=== PATIENT | male | born 1955 | race Caucasian/White ===

== ENCOUNTER 2022-02-14 14:47 | Emergency (ER) | payer MEDICARE, SELFPAY ==
--- NOTE | ~2022-02-14 | XR_ITS ---
XR knee LT 3V DATE: 02/14/2022 17:20 INDICATION: Twisting injury during a fall today. 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 No fracture or dislocation or joint effusion. No radiopaque intra-articular loose body or chondrocalc inosis. No periosteal reaction or bone destruction. IMPRESSION: Tricompartment osteophytosis No fracture or dislocation or joint effusion Reviewed, dictated and finalized at location B.
--- NOTE | ~2022-02-14 | XR_ITS ---
EXAMINATION: XR tibia fibula LT 2V INDICATION: Left leg pain TECHNIQUE: Two views of the left tibia and fibula are obtained on four radiographs. COMPARISON: None available FINDINGS: There is moderate osteoarthritis of the knee. No fracture is identified. The soft tissues a re unremarkable. Mild osteoarthritis is noted in the midfoot. IMPRESSION: 1. No acute osseous abnormality. Reviewed, dictated and finalized at location A.
[2022-02-14 14:54] VITALS: BP 115/77; PULSE 86; RESP 16; TEMP 36.2; O2SAT 99
--- NOTE | 2022-02-14 16:25 | ED.FALL ---
HPI - Fall General Chief Complaint: Fall Stated Complaint: fall- leg pain Time Seen by Provider: 02/14/22 16:18 Source: patient and family Mode of arrival: ambulatory Limitations: no limitations History of Present Illness HPI Narrative: Patient woke up at 3:30 AM and to go to the bathroom, twisted left lower extremity while trying to avoid stepping on his sleeping dogs. No fall, no head injury, no loss of consciousness. Pain at left knee distally. History of right dropfoot Related Data Allergies Allergy/AdvReac Type Severity Reaction Status Date / Time No Known Allergies Allergy Verified 02/14/22 14:59 Review of Systems Review of Systems: All systems reviewed & are unremarkable except as noted in HPI and below Exam Narrative: General appearance: Well-developed, well-nourished Skin: Normal color Head: Normocephalic, nontraumatic Neck: Supple, nontender Chest and respiratory: Airway patent, no respiratory distress, no accessory muscle use Heart: Regular rate/rhythm Vascular: Normal peripheral pulses, normal capillary refill. 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 No acute osseous abnormality. Critical Care Time Critical Care Time Critical Care Time: No Discharge Plan Discharge Clinical Impression: Knee sprain Patient Disposition: Home, Self-Care Condition: Stable Instructions: Antibiotic Form, Knee Sprain (ED), Knee Immobilizer (ED) Additional Instructions: Return if symptoms are worsening , call your family physician for appointment, take Tylenol as as needed for aches and pain, continue home medications. Follow-up/Referrals: Paulina,Carlos Tan MD [Primary Care Provider] -
[2022-02-14] MEDS: ONDANSETRON HCL ODT 4 MG TABLET PO (16:43)
[2022-02-14] MEDS: HYDROmorphone HCL INJ (*CRX) 1 MG/ML SYR IM (16:44)
== END 2022-02-14 20:01 | disposition home or self-care (01) ==
PROVIDERS: Emergency Provider Emergency Medicine; PCP Internal Medicine
DX: S83.92XA Sprain of unspecified site of left knee, initial encounter (principal); X50.1XXA Overexertion from prolonged static or awkward postures, initial encounter
CPT/HCPCS: 73562; 73590; 96372; 99284; A9270; J1170

== ENCOUNTER → 2023-06-03 13:14 | Outpatient (CLI) | payer MEDICARE, SELFPAY ==
--- NOTE | ~2023-06-03 | MR_ITS ---
MRI of the lumbar spine Clinical History: Failed back syndrome Technique: Axial T2-weighted images, and sagittal T1-weighted, T2-weighted, and T2 fat-sat images wer e acquired. Findings: No acute fracture seen. 4 mm retrolisthesis of L3 over L4 present. 3 mm retrolisthesis of L 2 over L3 present. No suspicious bone marrow signal abnormality seen. At L1-L2, there is moderate to advanced degenerative disc 9. There is mild disc bulge and moderate fa cet arthropathy. No central canal stenosis. Bilateral neural foramina are preserved. At L2-L3, there is moderate to advanced degenerative disc narrowing. There is mild diffuse disc bulge with moderate facet arthropathy. There is mild central canal stenosis. There is moderate left neural foraminal narrowing, and severe right neural foraminal narrowing. At L3-L4, there is moderate to severe degenerative disc narrowing. There is disc bulge and moderate f acet arthropathy, with left lateral recess stenosis. There is severe bilateral neural foraminal narro wing, left worse than right. At L4-L5, there is severe degenerative disc narrowing with laminectomy present. No central canal sten osis. There is moderate to severe bilateral neural foraminal narrowing. At L5-S1, there is laminectomy defect. There is probable severe central canal stenosis predominantly related to prominent epidural fat. There is mild bilateral neural foraminal narrowing. Paravertebral soft tissues are unremarkable. Impression: Moderate to severe degenerative spondylosis, as above. Laminectomy defects at L4 and L5. 4 mm retrolisthesis of L3 over L4. 3 mm retrolisthesis of L2 over L3. Reviewed, dictated and finalized at [facility]. Impression: Moderate to severe degenerative spondylosis, as above. Laminectomy defects at L4 and L5. 4 mm retrolisthesis of L3 over L4. 3 mm retrolisthesis of L2 over L3.
== END ==
PROVIDERS: PCP Internal Medicine; Visit Provider Physical Medicine & Rehabilitation
DX: M96.1 Postlaminectomy syndrome, not elsewhere classified (principal); M43.06 Spondylolysis, lumbar region
CPT/HCPCS: 72148

== ENCOUNTER 2023-10-16 14:28 | Outpatient (CLI) | payer MEDICARE, SELFPAY ==
[2023-10-16 14:45] LABS: Basophils Absolute Auto 0.1 K/mm3 (0.0-0.1); Basophils Percent Auto 0.9 % (0.2-1.2); Eosinophils Absolute Auto 0.4 K/mm3 (0-0.3); Eosinophils Percent Auto 5.6 % (0-4.4); Hematocrit 41.7 % (42.0-52.0); Hemoglobin 14.1 g/dL (14.0-18.0); Immature Granulocyte Absolute 0.02 K/mm3 (0.00-0.031); Immature Granulocyte Percent A 0.3 % (0-0.5); Lymphocytes Absolute Auto 2.39 K/mm3 (0.9-3.2); Lymphocytes Percent Auto 36.4 % (18.3-44.2); Mean Corpuscular HGB Conc 33.8 g/dl (32-36); Mean Corpuscular Hemoglobin 33.1 pg (26-34); Mean Corpuscular Volume 97.9 fl (80-100); Mean Platelet Volume 8.7 fl (7.4-10.4); Monocytes Absolute Auto 0.6 K/mm3 (0.1-0.6); Monocytes Percent Auto 8.5 % (2.6-8.5); Neutrophils Absolute Auto 3.2 K/mm3 (1.3-6.7); Neutrophils Percent Auto 48.3 % (45.5-73.1); Platelet Count Result 250 k/mm3 (150-375); Red Blood Count 4.26 M/mm3 (4.6-6.20); Red Cell Distribution Width 12.4 % (11.5-14.5); White Blood Count 6.6 K/mm3 (4.5-10.0)
[2023-10-16 16:42] LABS: Alanine Aminotransferase 30 U/L (6-50); Albumin Level 4.2 g/dL (3.5-5.1); Alkaline Phosphatase 72 U/L (38-126); Anion Gap 10 mmol/L (8-16); Aspartate Amino Transferase 32 U/L (17-59); Bilirubin,Total 0.4 mg/dL (0.2-1.3); Blood Urea Nitrogen 11 mg/dL (9-20); Calcium 8.8 mg/dL (8.4-10.2); Carbon Dioxide 23 mmol/L (22-30); Chloride 103 mmol/L (98-107); Estimated Glomerular Filt Rate > 60; Glucose 80 mg/dL (65-110); Potassium 4.3 mmol/L (3.4-5.0); Sodium 136 mmol/L (137-145)
[2023-10-16 18:05] LABS: Immunoglobulin A 292 mg/dL (70-400); Immunoglobulin G 1138 mg/dL (700-1600); Immunoglobulin M 61 mg/dL (40-230)
[2023-10-19 15:30] LABS: Kappa\\Lambda Light Chains 1.78 (0.26-1.65); Lambda Light Chain 20.3 mg/L (5.7-26.3)
[2023-10-20 16:03] LABS: Abnormal Protein Band 1 0.4 g/dL; Alpha 1 Globulin 0.3 g/dL (0.2-0.3); Alpha 2 Globulin 0.7 g/dL (0.5-0.9); Beta 1 Globulin 0.4 g/dL (0.4-0.6); Gamma Globulin 1.1 g/dL (0.8-1.7); Protein, Total 6.9 g/dL (6.1-8.1)
== END 2023-10-16 14:29 | disposition home or self-care (01) ==
LOC: ANHLAB 14:30
PROVIDERS: PCP Internal Medicine; Visit Provider Internal Medicine Hematology & Oncology
DX: D47.2 Monoclonal gammopathy (principal)
CPT/HCPCS: 36415; 80053; 82784; 83883; 84155; 84165; 85025

== ENCOUNTER 2024-06-10 13:38 | Outpatient (CLI) | payer MEDICARE, SELFPAY ==
[2024-06-10 14:03] LABS: Basophils Absolute Auto 0.1 K/mm3 (0.0-0.1); Basophils Percent Auto 0.7 % (0.2-1.2); Eosinophils Absolute Auto 0.1 K/mm3 (0-0.3); Eosinophils Percent Auto 1.4 % (0-4.4); Hematocrit 40.7 % (42.0-52.0); Immature Granulocyte Absolute 0.03 K/mm3 (0.00-0.031); Immature Granulocyte Percent A 0.4 % (0-0.5); Lymphocytes Absolute Auto 1.51 K/mm3 (0.9-3.2); Lymphocytes Percent Auto 19.8 % (18.3-44.2); Mean Corpuscular HGB Conc 34.4 g/dl (32-36); Mean Corpuscular Hemoglobin 34.1 pg (26-34); Mean Platelet Volume 8.6 fl (7.4-10.4); Monocytes Absolute Auto 0.5 K/mm3 (0.1-0.6); Monocytes Percent Auto 5.9 % (2.6-8.5); Neutrophils Absolute Auto 5.5 K/mm3 (1.3-6.7); Neutrophils Percent Auto 71.8 % (45.5-73.1); Platelet Count Result 218 k/mm3 (150-375); Red Blood Count 4.11 M/mm3 (4.6-6.20); Red Cell Distribution Width 12.6 % (11.5-14.5); White Blood Count 7.6 K/mm3 (4.5-10.0)
[2024-06-10 16:32] LABS: Alanine Aminotransferase 28 U/L (6-50); Albumin Level 4.2 g/dL (3.5-5.1); Alkaline Phosphatase 80 U/L (38-126); Anion Gap 12 mmol/L (4-12); Aspartate Amino Transferase 33 U/L (17-59); Bilirubin,Total 0.3 mg/dL (0.2-1.3); Blood Urea Nitrogen 7 mg/dL (9-20); Calcium 8.7 mg/dL (8.4-10.2); Carbon Dioxide 24 mmol/L (22-30); Chloride 98 mmol/L (98-107); Estimated Glomerular Filt Rate > 60; Glucose 93 mg/dL (65-110); Potassium 3.9 mmol/L (3.4-5.0); Sodium 134 mmol/L (137-145)
[2024-06-10 16:39] LABS: Immunoglobulin A 269 mg/dL (70-400); Immunoglobulin G 931 mg/dL (700-1600); Immunoglobulin M 61 mg/dL (40-230)
[2024-06-12 04:08] LABS: Protein, Total 6.5 g/dL (6.1-8.1)
[2024-06-14 14:13] LABS: Kappa\\Lambda Light Chains 1.72 (0.26-1.65); Lambda Light Chain 16.9 mg/L (5.7-26.3)
[2024-06-17 16:33] LABS: Abnormal Protein Band 1 0.4 g/dL (NONE DETECTED); Albumin 3.8 g/dL (3.8-4.8); Alpha 1 Globulin 0.3 g/dL (0.2-0.3); Alpha 2 Globulin 0.7 g/dL (0.5-0.9); Beta 1 Globulin 0.4 g/dL (0.4-0.6); Gamma Globulin 0.9 g/dL (0.8-1.7)
== END 2024-06-10 13:39 | disposition home or self-care (01) ==
LOC: ANHLAB 13:42
PROVIDERS: PCP Internal Medicine; Visit Provider Internal Medicine Hematology & Oncology
DX: D47.2 Monoclonal gammopathy (principal)
CPT/HCPCS: 36415; 80053; 82784; 83883; 84155; 84165; 85025

== ENCOUNTER 2024-08-25 11:48 | Outpatient (CLI) | payer MEDICARE, SELFPAY ==
--- NOTE | ~2024-08-25 | XR_ITS ---
EXAMINATION: XR thoracic spine 2V DATE: 08/25/2024 12:03 INDICATION: Low back pain. Thoracic radiculopathy. TECHNIQUE: 3 views of thoracic spine including standing views were obtained. COMPARISON: None. FINDINGS: There is 7 degrees dextrocurvature of thoracic spine. Vertebral body heights are normal. Th ere is mildly decreased disc height at many levels. There are endplate osteophytes at most levels. Th ere are changes of anterior fusion procedure from C4 to C6 with anterior plate and screws. IMPRESSION: 1. Mild thoracic spondylosis. Reviewed, dictated and finalized at location A. ROL PANEL TESTER
--- NOTE | ~2024-08-25 | XR_ITS ---
EXAMINATION: XR lumbar spine 2-3V DATE: 08/25/2024 12:03 INDICATION: Lumbar radiculopathy. Low back pain. TECHNIQUE: 3 views of lumbar spine including standing views were obtained. COMPARISON: Lumbar spine MRI 06/03/2023, thoracic spine radiographs 08/25/2024 FINDINGS: S1 is a transitional segment. There is 12 degrees levoscoliosis of lumbar spine. There is m ild chronic anterior wedging of T12 and L1 vertebral bodies. There is moderately decreased disc heigh t at L2-L3, L3-L4, and L4-L5. There is severely decreased disc height at L5-S1 with interbody fusion. There is multilevel severe facet joint osteoarthritis. IMPRESSION: 1. Moderate lumbar spondylosis. 2. Lumbar levoscoliosis. Reviewed, dictated and finalized at location A. ERY OPERATOR
== END 2024-08-25 11:49 | disposition home or self-care (01) ==
LOC: MICIMG 11:49
PROVIDERS: PCP Pain Medicine Interventional Pain Medicine; Visit Provider Pain Medicine Interventional Pain Medicine
DX: M47.24 Other spondylosis with radiculopathy, thoracic region (principal); M47.27 Other spondylosis with radiculopathy, lumbosacral region
CPT/HCPCS: 72070; 72100

== ENCOUNTER 2025-07-25 12:57 | Emergency (ER) | payer MEDICARE, SELFPAY ==
[2025-07-25] VITALS (32 sets, daily range): BP systolic 64–129; BP diastolic 46–94; PULSE 87–119; RESP 13–25; O2SAT 93–100
--- NOTE | ~2025-07-25 | CT_ITS ---
EXAMINATION: CTA chest PE protocol DATE: 07/25/2025 15:34 CDT INDICATION: New shortness of breath. Rule out PE Technique: Multiple axial CT images of the chest with IV contrast. Sagittal and coronal reformatted images were obtained. FINDINGS: Lungs and pleura: [ Multiple bilateral pulmonary emboli including saddle pulmonary emboli in the right main pulmonary artery and in the left main pulmonary artery.] No pneumothorax. No pleural effusion. No focal pulmonary consolidation. Evaluation is slightly limited due to motion artifact. Small patchy opacities in the right middle lobe. There is 8 mm pulmonary nodule in the right lower lobe. Mediastinum and pulmonary antonella: [ No mass or adenopathy.] Axillary/intramammary and supraclavicular: [ No mass or adenopathy.] Heart and great vessels: [ Normal heart size.[ [ No pericardial effusion.] [ No aneurysm.] Chest Wall: [ Unremarkable.] Upper Abdomen: Small hiatal hernia. Osseous structures: [ No acute fracture or destructive lesion.] [ Multilevel degenerative change in the visualized spine.] Additional findings: Hardware is noted. IMPRESSION: 1. Multiple bilateral pulmonary emboli. Dr. Blevins was notified about the findings on 07/25/2025 at 3:30 PM Eastern standard time by Dr. Castañeda, read back occurred 2. There is 8 mm pulmonary nodule in the right lower lobe. A PET/CT and/or biopsy is recommended. Reviewed, dictated and finalized at location Q. IMPRESSION: 1. Multiple bilateral pulmonary emboli. Dr. Blevins was notified about the fi ndings on 07/25/2025 at 3:30 PM Eastern standard time by Dr. Castañeda, read back occurred 2. There is 8 mm pulmonary nodule in the right lower lobe. A PET/CT and/or biop sy is recommended.
--- NOTE | ~2025-07-25 | XR_ITS ---
EXAMINATION: XR chest 2V 07/25/2025 14:13 INDICATION: Shortness of breath and dizziness PROCEDURE: 2 view chest COMPARISON: 02/22/2011 FINDINGS: The lungs are clear. The cardiomediastinal silhouette is within normal limits. There are no pleural effusions. There is no pneumothorax suspected. IMPRESSION: 1: NO ACUTE CARDIOPULMONARY DISEASE. Reviewed, dictated and finalized at location O.
--- NOTE | 2025-07-25 13:13 | ECG_ITS ---
Test Date: 2025-07-25 13:21:05 Measurements Intervals [place] Rate: 95 P: 61 CT: 163 QRS: 14 QRSD: 154 T: -3 QT: 381 QTc: 480 Interpretive Statements SINUS RHYTHM RIGHT BUNDLE BRANCH BLOCK BASELINE ARTIFACT- I, II, AVR, AVF ABNORMAL ECG No previous ECG available for comparison Electronically Signed On 07-25-2025 13:41:33 CDT by Regan Peña D.O.
[2025-07-25 13:28] LABS: Hematocrit 43.4 % (42.0-52.0); Hemoglobin 14.9 g/dL (14.0-18.0); Immature Granulocyte Percent A 0.6 % (0-0.5); Lymphocytes Absolute Auto 2.44 K/mm3 (0.9-3.2); Mean Corpuscular HGB Conc 34.3 g/dl (32-36); Mean Corpuscular Hemoglobin 34.2 pg (26-34); Mean Corpuscular Volume 99.5 fl (80-100); Nucleated Red Blood Cells Absolute Auto 0.000 K/mm3 (0.0-0.012); Nucleated Red Blood Cells Perc 0.0 % (0.0-0.2); Platelet Count Result 201 k/mm3 (150-375); Red Blood Count 4.36 M/mm3 (4.6-6.20); White Blood Count 14.5 K/mm3 (4.5-10.0)
[2025-07-25 13:39] LABS: Alanine Aminotransferase 97 U/L (6-50); Albumin Level 3.8 g/dL (3.5-5.1); Alkaline Phosphatase 84 U/L (38-126); Anion Gap 11 mmol/L (4-12); Aspartate Amino Transferase 106 U/L (17-59); Bilirubin,Total 1.2 mg/dL (0.2-1.3); Blood Urea Nitrogen 12 mg/dL (9-20); Calcium 8.2 mg/dL (8.4-10.2); Carbon Dioxide 22 mmol/L (22-30); Chloride 93 mmol/L (98-107); Estimated CRCL calculation 50 ml/min; Estimated Glomerular Filt Rate 44; Glucose 96 mg/dL (65-110); Potassium 3.8 mmol/L (3.4-5.0); Sodium 126 mmol/L (137-145); Total Protein 6.9 g/dL (6.3-8.2)
--- NOTE | 2025-07-25 13:54 | ED_ITS ---
HPI - SOB/Dyspnea General Chief Complaint: Shortness of Breath/Dyspnea Stated Complaint: SOB x 4/5 days Time Seen by Provider: 07/25/25 13:37 Source: patient Mode of arrival: ambulatory Limitations: no limitations History of Present Illness HPI Narrative: This is a 70-year-old male with history of hypertension, hypothyroidism who presents to the ED for shortness of breath. Patient states through the past few days ago he has been having shortness of breath worse with exertion. He states that today, he began to see stars prompting him to come to the ED. He reports no shortness of breath at rest. Denies chest pain, abdominal pain. He did have nausea and emesis x1 yesterday but has had none of that since then. No melena or hematochezia. Denies cough, fevers, chills. Related Data Home Medications ?Medication ?Instructions ?Recorded ?Confirmed ?Last Taken ?Type levothyroxine 50 mcg tablet 50 mcg PO DAILY 01/25/25 1 07/25/25 History losartan 100 mg tablet 100 mg PO DAILY 01/25/2507/25/25 History hydrocodone 10 mg-acetaminophen 1 tablet PO Q6H PRN pa in 02/17/25 07/25/25 07/25/25 History 325 mg tablet Allergies Allergy/AdvReac Type Severity Reaction Status Date / Time No Known Allergies Allergy Verified 07/25/25 13:21 Review of Systems 2 Review of Systems: Gen.: Denies fevers or chills Eyes: Denies eye pain or visual change ENT: Denies congestion Respiratory: As per HPI CV: Denies chest pain or palpitations GI: Denies abdominal pain nausea, emesis or diarrhea denies burning, urgency, frequency or hematuria Musculoskeletal: Denies back pain or muscle pain Neuro: Denies numbness, tingling, weakness or focal weakness Skin: Denies rash Except as documented, all other systems reviewed and negative [facility] Social History Social History Smoking status: Never smoker Alcohol intake: current Drinks per week: 20 Alcohol use details: beer Living arrangements: alone Spiritual care concerns: No Exam 2 Narrative: APPEARANCE: No acute distress, nontoxic, resting in bed EYES: EOMI HEENT: Normocephalic, atraumatic, OMM RESPIRATORY: No respiratory distress Clear to auscultation bilaterally with no rhonchi wheezing or rales. CARDIOVASCULAR: Regular rate and rhythm without murmurs rubs or gallops. ABDOMINAL: Soft, nontender, nondistended, no rebound or guarding MUSCULOSKELETAl: Moves all extremities. No clubbing, cyanosis or edema. NEURO: Awake and alert. Following commands, speech normal, no focal deficits SKIN:: Extremities cool. No rashes, lesions, abrasions PSYCHIATRIC: Normal affect/mood, Course Vital Signs Vital signs: Vital Signs Pulse Rate 95 07/25/25 13:16 Respiratory Rate 16 07/25/25 13:16 Blood Pressure 107/74 07/25/25 13:16 Pulse Oximetry 94 07/25/25 13:16 Oxygen Delivery Room Air 07/25/25 13:16 Pulse Rate 95 07/25/25 19:01 Respiratory Rate 19 07/25/25 19:01 Blood Pressure 105/79 07/25/25 19:01 Pulse Oximetry 98 07/25/25 19:01 Oxygen Delivery Nasal Cannula 07/25/25 18:16 Oxygen Flow Rate 2 07/25/25 18:16 MDM - SOB/Dyspnea MDM Narrative Medical decision making narrative: 70-year-old male presenting for dyspnea on exertion. On initial evaluation, patient was in no acute distress, afebrile. Blood pressure was borderline at 80s to 90s/60s but he was asymptomatic at this time. He is satting 95-96% on room air. Heart and lungs clear. He had a mild leukocytosis at 14.5. Hyponatremic to 126. Creatinine elevated at 1.55. Troponin elevated at 0.3 [place] [address]. Chest x-ray showed no acute process. CTA chest was obtained which showed significant bilateral pulmonary PEs with a saddle pulmonary embolus and evidence of right heart strain. Given this, patient will require transfer for possible thrombectomy. Patient was started on heparin bolus and drip. Spoke with Dr. Vora supply and distribution manager at [facility], will accept the patient pending IR consultation. Spoke with IR Dr. Mcdowell, will evaluate for thrombectomy on arrival, recommends admission to [facility] if possible. Spoke with Dr. Clark, Running Rigger, agrees to admit the patient under Dr. Nobles at [facility] pending immediate bed availability. There is apparently more availability at [facility] so patient was accepted by Dr. Vora supply and distribution manager, at [facility]. Patient transferred in a stable condition. CRITICAL CARE Indication: 60 Time type: intermittent I provided a total of 60 minutes of critical care excluding separately billable procedures. This includes time w/ EMS, initial bedside evaluation, reviewing old records, review of testing done while under my care, discussion w/ the family, nurses, public relations consultant and guiding the patient?s care while in the emergency department. Differential Diagnosis Differential diagnosis: Likely other (Anemia, GI bleed, electrolyte abnormality, ACS, CHF exacerbation) Medical Records Attestation: I reviewed the patient's medical records. Lab Data Attestation: I reviewed the patient's lab results. 07/25/25 13:23 07/25/25 13:23 Labs: Lab Results 07/25/25 Range/Units 13:23 WBC 14.5 H (4.5-10.0) K/mm3 RBC 4.36 L (4.6-6.20) M/mm3 Hgb 14.9 (14.0-18.0) g/dL Hct 43.4 (42.0-52.0) % MCV 99.5 (80-100) fl MCH 34.2 H (26-34) pg MCHC 34.3 (32-36) g/dl RDW 12.8 (11.5-14.5) % Plt Count 201 (150-375) k/mm3 MPV 9.3 (7.4-10.4) fl Immature Gran % (Auto) 0.6 H (0-0.5) % Neut % (Auto) 73.7 H (45.5-73.1) % Lymph % (Auto) 16.9 L (18.3-44.2) % [place] % (Auto) 7.5 (2.6-8.5) % Eos % (Auto) 0.9 (0-4.4) % Baso % (Auto) 0.4 (0.2-1.2) % Lymph # (Auto) 2.44 (0.9-3.2) K/mm3 [place] # (Auto) 1.1 H (0.1-0.6) K/mm3 Eos # (Auto) 0.1 (0-0.3) K/mm3 Baso # (Auto) 0.1 (0.0-0.1) K/mm3 Abs Immat Gran (auto) 0.08 H (0.00-0.031) K/mm3 Absolute Neuts (auto) 10.7 H (1.3-6.7) K/mm3 Absolute Nucleated RBC 0.000 (0.0-0.012) K/mm3 Nucleated RBC % 0.0 (0.0-0.2) % PT 15.9 H (11.1-14.7) Seconds INR 1.3 APTT 36.4 (22.3-36.8) Seconds Sodium 126 L (137-145) mmol/L Potassium 3.8 (3.4-5.0) mmol/L Chloride 93 L (98-107) mmol/L Carbon Dioxide 22 (22-30) mmol/L Anion Gap 11 (4-12) mmol/L BUN 12 D (9-20) mg/dL Creatinine 1.55 H (0.7-1.3) mg/dL Estim Creat Clear Calc 50 ml/min Estimated GFR 44 L (59 - ) Glucose 96 (65-110) mg/dL Calcium 8.2 L (8.4-10.2) mg/dL Total Bilirubin 1.2 (0.2-1.3) mg/dL AST 106 H (17-59) U/L ALT 97 H (6-50) U/L Alkaline Phosphatase 84 (38-126) U/L Troponin I 0.307 H* (0.000-0.034) ng/mL NT-Pro-B Natriuret Pep 47970 H (19.9-100) pg/mL Total Protein 6.9 (6.3-8.2) g/dL Albumin 3.8 (3.5-5.1) g/dL Imaging Data Attestation: I personally reviewed and interpreted this imaging study as follows: Radiologist's impression: Impressions Chest X-Ray 07/25/25 14:14 IMPRESSION: 1: NO ACUTE CARDIOPULMONARY DISEASE. Chest CTA 07/25/25 15:26 IMPRESSION: 1. Multiple bilateral pulmonary emboli. Dr. Blevins was notified about the findings on 07/25/2025 at 3:30 PM Eastern standard time by Dr. Castañeda, read back occurred 2. There is 8 mm pulmonary nodule in the right lower lobe. A PET/CT and/or biopsy is recommended. ECG Data EKG #1: Attestation: I personally reviewed and interpreted this ECG as follows: ECG completion date: 07/25/25 ECG completion time: 13:21 Interpretation: Normal sinus rhythm rate of 95, normal axis, right bundle-branch block, no acute ST or T-wave changes Discharge Plan Discharge Clinical Impression: Pulmonary embolism Qualifiers: Pulmonary embolism type: saddle Chronicity: acute Acute cor pulmonale presence: with acute cor pulmonale Qualified Code(s): I26.02 - Saddle embolus of pulmonary artery with acute cor pulmonale Patient Disposition: Acute Care Hospital Condition: Serious Patient Language: Maltese Prescriptions: No Action levothyroxine 50 mcg tablet 50 mcg PO DAILY losartan 100 mg tablet 100 mg PO DAILY hydrocodone-acetaminophen 10-325 mg tablet 1 tablet PO Q6H PRN (Reason: pain) Follow-up/Referrals: Paulina,Carlos Tan MD [Primary Care Provider, Unknown]
[2025-07-25] MEDS: SODIUM CHLORIDE 0.9% IV 1,000 ML 999 ML IV CONT (13:55)
[2025-07-25 15:58] LABS: INR 1.3; Prothrombin Time 15.9 Seconds (11.1-14.7)
[2025-07-25 15:59] LABS: Partial Thromboplastin Time 36.4 Seconds (22.3-36.8)
[2025-07-25] MEDS: HEPARIN SOD/D5W 100 UNITS/ML 25,000 UNITS/250 ML BAG 15 UNITS IV CONT (16:13)
[2025-07-25 16:47] LABS: NT Pro B Type Natriuretic Pept 14600 pg/mL (19.9-100)
[2025-07-25 16:48] LABS: Troponin I 0.307 ng/mL (0.000-0.034)
== END 2025-07-25 19:18 | disposition short-term general hospital (02) ==
PROVIDERS: Emergency Medicine; Emergency Provider Student in an Organized Health Care Education/Training Program; PCP Internal Medicine
DX: I26.02 Saddle embolus of pulmonary artery with acute cor pulmonale (principal); R94.31 Abnormal electrocardiogram [ECG] [EKG]; I10 Essential (primary) hypertension; E03.9 Hypothyroidism, unspecified
CPT/HCPCS: 36415; 71046; 71275; 80053; 83880; 84484; 85025; 85610; 85730; 93005; 96365; 96366; 99285; J1644; J7030; Q9967

== ENCOUNTER 2025-08-08 13:53 | Outpatient (CLI) | payer MEDICARE, SELFPAY ==
[2025-08-08 14:17] LABS: Hematocrit 40.2 % (42.0-52.0); Hemoglobin 13.3 g/dL (14.0-18.0); Immature Granulocyte Percent A 0.1 % (0-0.5); Lymphocytes Absolute Auto 2.45 K/mm3 (0.9-3.2); Mean Corpuscular HGB Conc 33.1 g/dl (32-36); Mean Corpuscular Hemoglobin 33.7 pg (26-34); Mean Corpuscular Volume 101.8 fl (80-100); Nucleated Red Blood Cells Absolute Auto 0.000 K/mm3 (0.0-0.012); Nucleated Red Blood Cells Perc 0.0 % (0.0-0.2); Platelet Count Result 390 k/mm3 (150-375); Red Blood Count 3.95 M/mm3 (4.6-6.20); White Blood Count 6.9 K/mm3 (4.5-10.0)
[2025-08-08 16:31] LABS: Alanine Aminotransferase 27 U/L (6-50); Albumin Level 4.3 g/dL (3.5-5.1); Alkaline Phosphatase 77 U/L (38-126); Anion Gap 9 mmol/L (4-12); Aspartate Amino Transferase 51 U/L (17-59); Bilirubin,Total 0.6 mg/dL (0.2-1.3); Blood Urea Nitrogen 14 mg/dL (9-20); Calcium 9.0 mg/dL (8.4-10.2); Carbon Dioxide 24 mmol/L (22-30); Chloride 99 mmol/L (98-107); Estimated Glomerular Filt Rate > 60; Glucose 85 mg/dL (65-110); Potassium 3.8 mmol/L (3.4-5.0); Sodium 132 mmol/L (137-145); Total Protein 7.6 g/dL (6.3-8.2)
[2025-08-08 16:41] LABS: Immunoglobulin A 366 mg/dL (70-400); Immunoglobulin G 995 mg/dL (700-1600); Immunoglobulin M 97 mg/dL (40-230)
[2025-08-09 15:09] LABS: Free Lambda Lt Chains, Serum 24.4 mg/L (5.7-26.3); Kappa/Lambda Ratio, Serum 1.54 (0.26-1.65)
[2025-08-10 15:09] LABS: Albumin 3.7 g/dL (2.9-4.4); Alpha-1-Globulin 0.3 g/dL (0.0-0.4); Alpha-2-Globulin 0.7 g/dL (0.4-1.0); Gamma Globulin 0.9 g/dL (0.4-1.8)
== END 2025-08-08 13:54 | disposition home or self-care (01) ==
PROVIDERS: PCP Internal Medicine; Visit Provider Internal Medicine Hematology & Oncology
DX: D47.2 Monoclonal gammopathy (principal)
CPT/HCPCS: 36415; 80053; 82784; 83521; 84155; 84165; 85025